=== PATIENT | female | born 1975 | race Caucasian/White ===

== ENCOUNTER → 2016-12-13 | Outpatient (CLI) | payer BC ==
[~2016-12-13] MED LIST: ACETAMINOPHEN-H1 TA2 PO; ANUSOL1 EACH PO; ATARAX25 MG PO; AUGMENTIN 875 M1 TA1 PO; BACTROBAN OINT22 GM PO; CEPHALEXIN500 M1 PO; CIPRO250 MG PO; CIPRO500 MG PO; CIPROFLOXACIN500 MG PO; CLINDAMYCIN HC300 MG PO; CLINDAMYCIN150 MG PO; CLONAZEPAM0.5 M2 PO; COLACE100 MG PO; CYANOCOBAL1000 MCG/M SC; FINASTERIDE5 MG PO; HUMIRA40 MG/0.1 SC; HYDROCODONE BIT1 T11 PO; HYDROCODONE BIT1 T20 PO; KETOROLAC10 MG PO; LEVOFLOXACIN500 MG PO; LOMOTIL 0.025 M1 TA1 PO; METFORMIN500 MG PO; MINERAL OIL 1 ML1 ML PO; MOTRIN800 MG PO; MULTIVITAMIN1 CTB PO; NEURONTIN100 MG PO; PEPCID20 MG PO; PERCOCET 325 MG1 TA2 PO; PERCOCET 325 MG1 TA6 PO; PHENERGAN25 M3 PO; PREDNISONE10 MG PO; PREDNISONE20 M1 PO; PRILOSEC40 MG PO; PROSCAR5 MG PO; PYRIDIUM200 M1 PO; PYRIDIUM200 MG PO; Percocet 325 MG1 TAB PO; Phenergan25 MG PO; REMICADE100 MG IM; SPIRONOLACTONE50 MG PO; VICODIN 5/500 505 MG PO; VISTARIL25 M2 PO; ZOFRAN ODT4 MG SL; ZOFRAN8 M1 PO; ZOFRAN8 MG PO; ZOLOFT100 MG PO
[2016-12-17 19:04] LABS: MITOGEN VALUE >10.00 IU/mL (.); NIL VALUE 0.04 IU/mL (.); TB Ag VALUE 0.04 IU/mL (.); TB GOLD Negative (Negative)
== END | disposition home or self-care (01) ==
LOC: LAB 11:19
PROVIDERS: Dermatology
DX: Z79.899 Other long term (current) drug therapy (principal)

== ENCOUNTER 2017-03-11 19:58 | Emergency (ER) | payer BC ==
[~2017-03-11] VITALS: Ht 152.4 cm; Wt 72.6 kg
[2017-03-11 20:24] VITALS: BP 137/87
[2017-03-11] MEDS ORDERED: REMERON30 M1 PO (20:24)
[2017-03-11] MEDS ORDERED: HUMIRA40 MG/0.8 MR (20:25)
[2017-03-11] MEDS ORDERED: HYDROCODONE BIT1 T20 PO (20:26)
[2017-03-11] MEDS ORDERED: DIAZEPAM10 M1 PO (20:26)
[2017-03-11 22:14] LABS: BASO % 0.4 % (0.0-1.0); EOS # 0.1 10*3/uL (0.0-0.4); EOS % 0.8 % (1.0-4.0); HEMATOCRIT 38.4 % (37.0-47.0); HEMOGLOBIN 12.6 g/dl (12.0-16.0); LYMPH # 2.4 10*3/uL (1.3-4.4); LYMPH % 34.3 % (27.0-41.0); MEAN CORPUSCULAR HGB 29.9 pg (27.0-31.0); MEAN CORPUSCULAR HGB CONC 32.8 g/dl (33.0-37.0); MEAN PLATELET VOLUME 10.5 fl (9.6-12.3); MONO # 0.5 10*3/uL (0.1-1.0); MONO % 6.8 % (3.0-9.0); NEUT # 4.1 10*3/uL (2.3-7.9); NEUT % 57.4 % (47.0-73.0); PLATELET COUNT AUTOMATED 170 10*3/uL (130-400); RED BLOOD COUNT 4.22 10*6/uL (4.10-5.10); RED CELL DISTRI WIDTH 13.3 % (0-14.5); WHITE BLOOD COUNT 7.1 10*3/uL (4.8-10.8)
[2017-03-11 23:34] LABS: ALBUMIN 3.4 gm/dl (3.1-4.5); ALKALINE PHOSPHATASE 60 U/L (45-117); BILIRUBIN, TOTAL 0.4 mg/dl (0.2-1.0); BUN 11 mg/dl (7-24); CARBON DIOXIDE 25 mmol/L (21-32); CHLORIDE 111 mmol/L (98-107); EST GLOM FILT AFRICAN AMERICAN > 60 ml/min; GLUCOSE 89 mg/dL (65-99); POTASSIUM 3.7 mmol/L (3.5-5.1); SGOT/AST 15 IU/L (3-35); SGPT/ALT 21 U/L (12-78); SODIUM 148 mmol/L (136-145); TOTAL PROTEIN 6.6 gm/dL (6.4-8.2)
[2017-03-12 00:37] LABS: BILIRUBIN 1+ (NEGATIVE); BLOOD TRACE-INTACT (NEGATIVE); CLARITY SL CLOUDY (CLEAR); COLOR YELLOW (YELLOW); GLUCOSE NEGATIVE (NEGATIVE); KETONE TRACE (NEGATIVE); LEUKO ESTERASE TRACE (NEGATIVE); NITRITE NEGATIVE (NEGATIVE); PH 5.5 (5.0-9.0); PROTEIN NEGATIVE (NEGATIVE); SPECIFIC GRAVITY >= 1.030 (1.005-1.030)
[2017-03-12 00:42] LABS: BACTERIA TRACE; URINE REFLEX COMMENT YES (NO)
[2017-03-12] MEDS ORDERED: KEFLEX500 M1 PO (00:59)
[2017-03-12] MEDS ORDERED: ZOFRAN ODT4 MG SL (00:59)
== END 2017-03-12 01:19 | disposition home or self-care (01) ==
LOC: ED 19:58
PROVIDERS: Emergency Medicine Emergency Medical Services
DX: R82.71 Bacteriuria (principal); R10.2 Pelvic and perineal pain; F17.200 Nicotine dependence, unspecified, uncomplicated; Z98.890 Other specified postprocedural states; Z98.51 Tubal ligation status; Z90.49 Acquired absence of other specified parts of digestive tract; Z79.899 Other long term (current) drug therapy; Z88.2 Allergy status to sulfonamides; Z88.1 Allergy status to other antibiotic agents; Z88.8 Allergy status to other drugs, medicaments and biological substances

== ENCOUNTER → 2017-09-23 | Outpatient (CLI) | payer BC ==
[~2017-09-23] MED LIST changes: +DIAZEPAM10 M1 PO; +HUMIRA40 MG/0.8 MR; +KEFLEX500 M1 PO; +REMERON30 M1 PO
[2017-09-23 13:12] LABS: BASO % 0.4 % (0.0-1.0); EOS # 0.1 10*3/uL (0.0-0.4); EOS % 1.1 % (1.0-4.0); HEMATOCRIT 41.4 % (37.0-47.0); HEMOGLOBIN 13.6 g/dl (12.0-16.0); LYMPH # 3.2 10*3/uL (1.3-4.4); LYMPH % 37.2 % (27.0-41.0); MEAN CELL VOLUME 91.6 fl (81.0-99.0); MEAN CORPUSCULAR HGB 30.1 pg (27.0-31.0); MEAN CORPUSCULAR HGB CONC 32.9 g/dl (33.0-37.0); MEAN PLATELET VOLUME 11.5 fl (9.6-12.3); MONO # 0.6 10*3/uL (0.1-1.0); MONO % 6.6 % (3.0-9.0); NEUT # 4.6 10*3/uL (2.3-7.9); NEUT % 54.2 % (47.0-73.0); PLATELET COUNT AUTOMATED 182 10*3/uL (130-400); RED BLOOD COUNT 4.52 10*6/uL (4.10-5.10); RED CELL DISTRI WIDTH 13.1 % (0-14.5); WHITE BLOOD COUNT 8.5 10*3/uL (4.8-10.8)
[2017-09-23 13:21] LABS: ALBUMIN 3.8 gm/dl (3.1-4.5); ALKALINE PHOSPHATASE 85 U/L (45-117); BUN 12 mg/dl (7-24); CHLORIDE 104 mmol/L (98-107); CREATININE 0.71 mg/dL (0.55-1.02); POTASSIUM 3.7 mmol/L (3.5-5.1); SGOT/AST 18 IU/L (3-35); SGPT/ALT 30 U/L (12-78); SODIUM 138 mmol/L (136-145); TOTAL PROTEIN 7.4 gm/dL (6.4-8.2)
== END | disposition home or self-care (01) ==
LOC: LAB 12:47
PROVIDERS: Dermatology
DX: Z79.899 Other long term (current) drug therapy (principal)